=== PATIENT | male | born 1940 | race Caucasian/White ===

== ENCOUNTER 2019-01-22 10:50 | Emergency (ER) | payer MEDICARE, BC, SELFPAY ==
[2019-01-22 10:52] VITALS: BP 179/94; PULSE 84; RESP 15; TEMP 36.5; O2SAT 97; BMI 23.8
--- NOTE | 2019-01-22 11:10 | RAD_ITS ---
STUDY: X-RAY CHEST REASON FOR EXAM: Male, 78 years old. Shortness of breath. TECHNIQUE: Single AP portable view of the chest. COMPARISON: None. FINDINGS: Telemetry wires overlie the chest. The lungs are clear and expanded. There is no demonstrated pleural abnormality. Normal size heart. Normal mediastinum and debra. Normal visualized pulmonary arteries. There is atherosclerotic calcification of the aortic arch with tortuosity. There are diffuse degenerative changes of the visualized thoracic spine. There is degenerative osteoarthritis of the bilateral shoulders. There is no demonstrated abnormality of the visualized soft tissue structures of the upper abdomen. RAD/Chest 1 View (Portable) IMPRESSION: Degenerative changes, as described above. No demonstrated acute cardiopulmonary process. Electronically Signed: George Guillen DO at 12:13 EDT Tel [phone], Service support ,
--- NOTE | 2019-01-22 11:10 | EKG12_ITS ---
Test Reason : ALT LOC Blood Pressure : / mmHG Vent. Rate : 084 BPM Atrial Rate : 084 BPM P-R Int : 130 ms QRS Dur : 116 ms QT Int : 400 ms P-R-T Axes : 068 005 049 degrees QTc Int : 472 ms Normal sinus rhythm Incomplete right bundle branch block Nonspecific T wave abnormality Abnormal ECG Confirmed by JEREMY OJSEPH, BRITTNI ([id number]), newspaper managing editor TERRANCE MARIANO ([id number]) on 01/25/2019 10:40:40 AM Referred By: VANNA Confirmed By:BRITTNI LUNA MD
--- NOTE | 2019-01-22 11:13 | ED.VIS.GEN ---
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 Patient is moaning and grunting, and stating that his tongue and throat feels swollen, similar to when he has had allergic reactions to jalapeno peppers in the past although he has not eaten any in 50 years. However, when people have eaten jalapeno peppers and then spoke to him, thereby blowing the chemical substance in his face, he has had symptoms like this. He does not know of any definite exposure to jalapeno peppers recently, but states someone must have eaten jalapenos and then talked to me. Despite his continued moaning and grunting, he affirms that he is not dyspneic. Past Medical History - Allergies and Home Meds Allergies/Adverse Reactions: Allergies hot peppers Allergy (Uncoded 01/22/19 12:46) Rash Lives: Spouse/ Significant Other Review of Systems ROS: Unable to Obtain - Limited due to intoxication and continued moaning ENT: Reports: - - Feels like throat swollen. Denies: Rhinorrhea, Sore throat Cardiovascular: Denies: Chest pain, Palpitations Respiratory: Denies: Dyspnea, Cough, Dyspnea on exertion Gastrointestinal: Denies: Abdominal pain, Nausea, Vomiting, Diarrhea, Melena, Hematochezia Genitourinary: Denies: Dysuria, Hematuria, Frequency Musculoskeletal: Denies: Back pain, Swelling, Extremity Pain Skin: Denies: Rash, Wounds Neurological: Denies: Headache, Weakness, Numbness Physical Exam Vital Signs/Narrative: Vital Signs Temp Pulse Resp BP Pulse Ox 01/22/19 10:52 97.7 F L 84 15 179/94 H 97 Inital Vital Signs reviewed: Yes General: Well nourished, Well developed, Acute Distress - Continuously grunting, moaning. Speaking in 1-2 word sentences in between. No stridor. Head: Normocephalic, Atraumatic Eyes: Perrl, EOMI, - - Bilateral diffuse conjunctival injection without discharge ENT: Moist mucous membranes, No rhinorrhea, - - No trismus. Posterior oropharynx is clear and normal-appearing. Tongue is normal-appearing without any obvious angioedema. Neck is normal-appearing. Neck: Supple, Nontender, No lymphadenopathy Cardiovascular: Regular rate, Regular rhythm, No murmurs Respiratory: No distress, CTA bilaterally, Chest nontender Abdomen: Soft, Nontender, Nondistended, Normal bowel sounds Back: Nontender, Normal Inspection Extremities: Nontender, No edema Skin: Normal color, No rash, No Trauma Neurological: Alert, Oriented x3, Cranial nerves II-XII grossly intact, Normal Strength, Normal Sensation Psychological: - - Seems grossly intoxicated. Diagnostic/Tx/Re-eval Impressions Chest X-Ray 01/22/19 11:10 IMPRESSION: Degenerative changes, as described above. No demonstrated acute cardiopulmonary process. Electronically Signed: George LukeonDO at 12:13 EDT Tel [phone], Service support , 01/22/19 11:10 Chest 1 View (Portable) [RAD] Stat Laboratory Results 01/22/19 01/22/19 01/22/19 10:55 10:55 10:55 WBC 6.0 RBC 4.52 L Hgb 13.1 Hct 39.5 L MCV 87.4 MCH 29.0 MCHC 33.2 RDW Std Deviation 44.5 H RDW Coeff of Sandra 13.9 Plt Count 256 MPV 10.1 Immature Gran % (Auto) 1.000 H Neut % (Auto) 64.2 Lymph % (Auto) 18.6 L Hayes % (Auto) 8.1 Eos % (Auto) 6.8 H Baso % (Auto) 1.3 H Absolute Neuts (auto) 3.9 Absolute Lymphs (auto) 1.12 Nucleated RBC % 0 Sodium 142 Potassium 3.8 Chloride 109 H Carbon Dioxide 25.0 Anion Gap 8 BUN 20 H Creatinine 0.94 Estim Creat Clear Calc 53.36 Est GFR (MDRD) Af Amer 100 Est GFR (MDRD) Non-Af 83 BUN/Creatinine Ratio 21.4 H Glucose 99 Calcium 9.0 Ethyl Alcohol 274.0 - Medical Decision Making Patient has been ambulatory in the emergency department since receiving Solu-Medrol, Benadryl IV as well as epinephrine IM 0.3 mg. He has been conversing, breathing, swallowing normal. Passing fluids without any difficulty, he never developed any stridor. On reevaluation now he has a ride, he is staying at a hotel in someone from the hotel is here to pick him up. He states I am still talking like I am drunk. Given his alcohol level of 274, I advised the patient and my professional opinion, he is drunk. He states there must be something wrong with my liver than. He had an MRI showing nothing was wrong with it he states, and he is not jaundiced or an alcoholic. He is is not having any ataxia at this time and is walking a straight line down the her to and from the bathroom. His throat is clearly better. He states that he has taken 48 hours before for all of this to improve to baseline. He is comfortable going home. Advised to return if worse. ED Disposition - Plan for ED Patient: Disposition: Home or Assisted Living Diagnosis: Throat swelling, Alcohol intoxication Instructions: ED Angioedema Referrals: Vika Lopez [NON-STAFF] - 1-2 Days if not improving (or your primary doctor)
[2019-01-22] MEDS: DiphenhydrAMINE 50 MG/ML Syringe 25 MG IV (11:15)
[2019-01-22] MEDS: MethylPREDNISolone 125 MG/2 ML Vial IV (11:16)
[2019-01-22 11:19] LABS: Absolute Lymphocyte Count 1.12 X10^3/uL (0.83-4.51); Absolute Neutrophil Count 3.9 X10^3/uL (2.0-7.7); Basophil# 0.08 X10^3/uL; Basophil% 1.3 % (0-1); Eosinophil# 0.41 X10^3/uL; Eosinophils% 6.8 % (0-5); Hematocrit 39.5 % (40-54); Hemoglobin 13.1 g/dL (13.0-16.5); Lymphocyte # 1.12 X10^3/ul (4.0); Lymphocyte % 18.6 % (19-41); Mean Corp Hgb Conc 33.2 g/dL (32-36); Mean Corpuscular Volume 87.4 fL (80-94); Mean Platelet Vol. 10.1 fl (6.2-12.0); Monocyte# 0.49 X10^3/uL; Monocyte% 8.1 % (0-10); NRBC Flagged by Analyzer 0 % (0-5); Neutrophil # 3.86 X10^3/uL (2.7-7.7); Neutrophil % 64.2 % (47-70); Platelet Count 256 K/mm3 (150-450); RBC Distribution Width CV 13.9 % (11.6-14.6); RBC Distribution Width SD 44.5 fl (35.1-43.9); Red Blood Count 4.52 M/mm3 (4.6-6.2)
[2019-01-22 11:27] LABS: Anion Gap 8 (5-15); BUN 20 mg/dL (7-18); BUN/Creat Ratio 21.4 RATIO (10-20); Chloride 109 mmol/L (98-107); Creatinine, Serum 0.94 mg/dL (0.70-1.30); EST Glomerular Filtration Rate 83 mL/min (>60); Est Glom Filt Rate - Afr Amer 100 mL/min (>60); Estimated Creatinine Clearance 53.36 ml/min; Glucose 99 mg/dL (74-106); Potassium 3.8 mmol/L (3.5-5.1); Sodium Level 142 mmol/L (136-145)
[2019-01-22 13:25] VITALS: BP 133/70; PULSE 92; RESP 16; O2SAT 97
[2019-01-22 14:52] VITALS: PULSE 79; RESP 16; O2SAT 98
== END 2019-01-22 14:53 | disposition home or self-care (01) ==
PROVIDERS: Emergency Provider Emergency Medicine
DX: F10.129 Alcohol abuse with intoxication, unspecified (principal); Y90.8 Blood alcohol level of 240 mg/100 ml or more; K22.8 Other specified diseases of esophagus
CPT/HCPCS: 71045; 80048; 80320; 85025; 93005; 96372; 96374; 96375; 99285; A4216; G0480

== ENCOUNTER 2019-01-22 20:22 | Emergency (ER) | payer MEDICARE, BC, SELFPAY ==
[2019-01-22 10:52] VITALS: BMI 23.8
[2019-01-22 20:23] VITALS: BP 143/86; PULSE 115; RESP 15; TEMP 36.3; O2SAT 97; BMI 22.8
--- NOTE | 2019-01-22 20:41 | ED.VISSUMM ---
- ER Visit Summary Date of Service: 01/22/19 Chief Complaint: Trouble urinating History of Present Illness: The patient is a 78 M history of hypertension, hypertension BPH. Patient is in town visiting for the last week watching the [employer]. He was actually seen in the emergency department earlier today and was intoxicated at that time. He now states he is unable to urinate. He has had a history of urinary retention. Denies any hematuria or dysuria. No fever or chills. Physical Examination: Older male no acute distress. Vital signs are stable. He is afebrile. He does not look septic or toxic. H EENT exam smell of alcohol otherwise unremarkable. Neck nontender. Lungs clear to auscultation. Heart regular rhythm rate about 110 no murmur. Abdomen soft nontender. Normal bowel sounds no peritoneal signs. Patient is moving all 4 extremities. No edema. Neurologically he is awake and alert. Test Results: Patient had CBC and chemistry earlier today. His kidney function was normal. Urinalysis shows no acute infection. Patient was able to urinate a small amount. After that nurse did post void bladder scan which showed at least 750 cc of urine. She placed a Good catheter and patient had over 1100 out of clear urine. Emergency Department Course and Treatment: We will have the patient attempt to urinate. Obtain a bladder scan. Repeat exam at 213 patient is doing well. Much more comfortable after Good catheter was placed. Treatment Plan: Follow-up with local urologist here or his in [place] when he returns home. Disposition: Discharge Impression: Acute urinary retention Good catheter placed by director of business systems alcohol intoxication This note was generated with [employer] dictation software. It may contain incorrect words, spelling, and punctuation that were not noted in review of the chart prior to signing ED Disposition - Plan for ED Patient: Referrals: Care Physician,No Primary [Primary Care Provider] -
[2019-01-22 21:12] LABS: Mucous, Urine 0 SEEN /hpf (<or=2+)
[2019-01-22 21:15] LABS: Color, Urine Yellow (Yellow); Glucose, Dipstick Normal (Normal); Ketone-Dipstick Negative (Negative); Leukocyte Esterase-Dipstick 100 /ul (Negative); Nitrite-Dipstick Negative (Negative); Occult Blood-Urine 150 /ul (Negative); Protein-Dipstick Negative (Negative); Urine Bilirubin Dipstick Negative (Negative); Urine Clarity Clear (Clear); Urine Urobilinogen Normal (Normal)
[2019-01-22 21:32] LABS: Red Blood Cells-Urine 5-10 SEEN /hpf (0-5); Squamous Epithelial Cells - UA 0-5 SEEN /hpf (0-5); White Blood Cells 0-5 SEEN /hpf (0-5)
[2019-01-22 21:34] LABS: Bacteria RARE /hpf (None Seen)
--- NOTE | 2019-01-22 21:38 | DCINST.ED_ITS ---
ED Disposition - Plan for ED Patient: Disposition: Home or Assisted Living Instructions: URINARY RETENTION, Male Referrals: Raul Flores MD [STAFF PHYSICIAN] - As soon as possible Additional Instructions: Follow-up either with our urologist here locally or ureters back in [place] when you go home.
[2019-01-22 22:05] VITALS: PULSE 102; RESP 16; O2SAT 97
== END 2019-01-22 22:05 | disposition home or self-care (01) ==
PROVIDERS: Emergency Provider Emergency Medicine
DX: R33.8 Other retention of urine (principal); F10.129 Alcohol abuse with intoxication, unspecified; K22.8 Other specified diseases of esophagus; I10 Essential (primary) hypertension; Z79.899 Other long term (current) drug therapy; Y90.8 Blood alcohol level of 240 mg/100 ml or more
CPT/HCPCS: 51702; 71045; 80048; 80320; 81001; 85025; 93005; 96372; 96374; 96375; 99283; 99285; A4216; G0480